=== PATIENT | male | born 1965 | race Caucasian/White ===

== ENCOUNTER 2023-08-09 11:49 | Emergency (ER) | payer BC, OTHER ==
[2023-08-09 12:12] VITALS: BP 134/80; O2SAT 99
--- NOTE | 2023-08-09 12:43 | ED Physician Documentation ---
History of Present Illness - Stated complaint Stated Complaint: LT EYE IRRITATED - Chief complaint Chief Complaint: Heent - History obtained from History obtained from: Patient - History of Present Illness Timing: How many days ago (3-4) Pain level max: 0 Pain level now: 0 - Additonal information Additional information: Patient is a 58-year-old male who presents to the emergency department complaining of itching to the left eye for the past 3 to 4 days. He is here visiting from [place]. 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 Has a history of glaucoma as well. No drainage. He states the eye is very itchy. He thinks perhaps he got a piece of cat hair in his eye. No difficulty breathing. No hives. Has not taken anything for the discomfort. Has not placed any drops in his eye. Review of Systems Constitutional: denies: Fever, Chills Respiratory: denies: Cough GI: denies: Vomiting, Diarrhea Skin: denies: Rash Musculoskeletal: denies: Neck pain, Back pain PD PAST MEDICAL HISTORY - Past Medical History Past Medical History: Yes HEENT: Glaucoma - Past Surgical History Past Surgical History: Yes Ortho: Shoulder arthroplasty, Other - Present Medications Home Medications: Ambulatory Orders Medication Instructions Recorded Confirmed Citalopram [CeleXA] 20 mg PO DAILY 08/09/23 08/09/23 Ketotifen Fumarate 1 drops LEFTEYE Q12H PRN #1 each 08/09/23 Meloxicam 15 mg PO DAILY PM 08/09/23 08/09/23 Polymyxin B/Trimeth Ophth Drop 1 drops LEFTEYE Q3H 7 Days #1 each 08/09/23 [Polytrim Ophth Drops] - Allergies Allergies/Adverse Reactions: Allergies Allergy/AdvReac Type Severity Reaction Status Date / Time No Known Drug Allergies Allergy Verified 08/09/23 12:10 - Social History Does the pt smoke?: No Smoking Status: Never smoker Does the pt drink ETOH?: Yes Does the pt have substance abuse?: No PD ED PE NORMAL - Vitals Vital signs reviewed: Yes - General General: Alert and oriented X 3, No acute distress - HEENT HEENT: Moist mucous membranes, Other (L eye - Conjunctival injection. No drain age. No visible foreign body. No fluorescein uptake.) - Neck Neck: Supple, no meningeal sign - Derm Derm: Warm and dry - Neuro Neuro: Alert and oriented X 3 - Psych Psych: Normal mood, Normal affect Results - Vitals Vitals: Vital Signs - 24 hr 08/09/23 12:05 Temperature 36.6 C Heart Rate 67 Respiratory 16 Rate Blood Pressure 134/80 H O2 Saturation 99 Oxygen O2 Source Room air PD Medical Decision Making - ED course Complexity details: considered differential, d/w patient, d/w family ED course: Patient is a 58-year-old male with what appears to be likely allergic conjunctivitis of the left eye, will place on ketotifen drops for home. Possible secondary bacterial infection, given his complex ocular history, we will cover with ophthalmic antibiotics as well. No visible foreign body. No corneal abrasion. No corneal ulceration. Patient counseled regarding signs and symptoms for which I believe and urgent re-evaluation would be necessary. Patient with good understanding of and agreement to plan and is comfortable going home at this time This document was made in part using voice recognition software. While efforts are made to proofread this document, sound alike and grammatical errors may occur. Departure - Departure Disposition: Home, Self Care Clinical Impression: Conjunctivitis Qualifiers: Conjunctivitis type: unspecified Laterality: left Qualified Code(s): H10.9 - Unspecified conjunctivitis Condition: Good Instructions: ED Conjunctivitis Nonspecific Follow-Up: your,doctor in 1 week fi not better [Other] Prescriptions: Ketotifen Fumarate 1 drops LEFTEYE Q12H PRN #1 each PRN Reason: eye itching Polymyxin B/Trimeth Ophth Drop [Polytrim Ophth Drops] 1 drops LEFTEYE Q3H 7 Days #1 each Comments: Your prescriptions were sent to [facility] in [place]. This is likely an allergic conjunctivitis, the keto Magnolia drops should help with this. You can take oral Zyrtec as well or Claritin. We will place you on an ophthalmic antibiotic in case this is becoming secondarily infected. Please follow-up with your doctor if not better in 1 week. Please return if you worsen. Forms: PCP List
== END 2023-08-09 12:58 | disposition home or self-care (01) ==
LOC: ED 11:49
DX: H10.9 Unspecified conjunctivitis (principal)
CPT/HCPCS: 99282; 99283